=== PATIENT | female | born 1945 | race Caucasian/White ===

== ENCOUNTER 2020-05-20 18:06 | Inpatient (IN) ==
[2020-05-20] MEDS ORDERED: ALBUT/IPRATROP 3MG/0.5MG NEB 3 ML VIAL INH STA (18:16)
--- NOTE | 2020-05-20 18:22 | Emergency Department Note ---
History of Present Illness General Chief Complaint: Shortness of Breath/Dyspnea Stated Complaint: SOB, EDEMA, HTN Time Seen by Provider: 05/20/20 18:10 Source: patient Mode of arrival: ambulatory Limitations: no limitations History of Present Illness Provider Complaint: shortness of breath HPI Narrative: This is a 74-year-old female who presents to the ED with a chief complaint of shortness of breath for at least 2 weeks. She states that it has been going on longer but it significantly worsened over the past couple of weeks. She states that she is also noticed some worsening of her pedal edema. She states that it typically gets worse in the summer anyway. She was seen at the PCPs office today and was found to have oxygen saturations of 77% on room air. This improved to 92% on 2 L. She was sent here for further evaluation. She denies any cold or cough symptoms. She has not had any sick contacts. She has not had a fever. No chest pains. No additional symptoms. Her symptoms are worsened with exertion. Related Data Home oxygen amount: none Home Medications Home Medications Medication Instructions Recorded Confirmed Type Glucosamine Chondroitin 2 cap PO BID 09/20/19 05/20/20 History cholecalciferol (vitamin D3) 2,000 unit PO QAM 09/20/19 05/20/20 History [Vitamin D3] furosemide 20 mg PO QAM 09/20/19 05/20/20 History ibuprofen 600 mg PO DAILY PRN 09/20/19 05/20/20 History losartan 25 mg PO QAM 09/20/19 05/20/20 History omega 2-qey-pxf-fish oil [Fish Oil] 1 cap PO QAM 09/20/19 05/20/20 History Allergies Allergy/AdvReac Type Severity Reaction Status Date / Time No Known Allergies Allergy Verified 05/20/20 19:30 Past Med/Surg History Medical History Hepatitis 40 YRS AGO Hypertension Morbid obesity with BMI of 40.0-44.9, adult Surgical History History of cholecystectomy History of hysterectomy History of right cataract surgery History of tooth extraction Family History Mother Diabetes Daughter Diabetes Social History Smoking Status: Former smoker Second Hand Exposure: No; Hx Alcohol Use: No Hx Substance Use: No Preferred Language: Hungarian Communication Ability: Effective Recreation Officer Required: No Beliefs That Will Affect Care: None Current Living Situation: Spouse Feels Safe at Home: Yes Review of Systems A total of 10 systems reviewed and were otherwise negative Physical Exam Vital Signs: Vital Signs - 24 hr 05/20/20 18:15 05/20/20 18:22 05/20/20 18:23 Temperature 37.5 C Temperature Source Oral Pulse Rate 98 H 98 H Pulse Rate [Apical ] 98 H Respiratory Rate 24 24 24 Respiratory Effort / Characteristics Spontaneous Labore d Spontaneous Labore d Respiratory Depth Normal Normal Respiratory Patter n Regular Regular Blood Pressure 158/84 H Blood Pressure [Ri ght Arm] 158/84 H Blood Pressure Pebbles n 108 Blood Pressure Pebbles n [Right Arm] 108 Pulse Oximetry 78 L 97 97 Oxygen Delivery Me thod Room Air Nasal Cannula Nasal Cannula Oxygen Flow Rate 3 2 2 Sepsis Recent Feve r Within 48 Hours No Sepsis New/Unexpla ined Change in Men deena Status No Sepsis Action Take n by Nursing No Action Required 05/20/20 19:00 05/20/20 20:50 Temperature Temperature Source Pulse Rate Pulse Rate [Apical ] 91 H 100 H Respiratory Rate 20 Respiratory Effort / Characteristics Non-Labored Sponta neous Respiratory Depth Respiratory Patter n Blood Pressure Blood Pressure [Ri ght Arm] 133/81 Blood Pressure Pebbles n Blood Pressure Pebbles n [Right Arm] 98 Pulse Oximetry 97 93 Oxygen Delivery Me thod Nasal Cannula Nasal Cannula Oxygen Flow Rate 2 3 Sepsis Recent Feve r Within 48 Hours Sepsis New/Unexpla ined Change in Men deena Status Sepsis Action Take n by Nursing Physical Exam: CONSTITUTIONAL/VITAL SIGNS: Reviewed / noted above. GENERAL: Non-toxic in appearance. INTEGUMENTARY: Warm, dry, and [place]. HEAD: Normocephalic. EYES: without scleral icterus or trauma. ENT/OROPHARYNX: clear and moist. LYMPHADENOPATHY/NECK: Is supple without lymphadenopathy or meningismus. RESPIRATORY: Lungs reveal diminished breath sounds bilaterally with some crackle s in the bases. CARDIOVASCULAR: Regular rate and rhythm. GI/ABDOMEN: Soft and nontender. No organomegaly or pulsatile mass. No rebound or guarding. Normal bowel sounds. EXTREMITIES: Warm and well perfused. Positive pedal edema. BACK: No CVA tenderness. NEUROLOGICAL: Intact without focal deficits. PSYCHIATRIC: normal affect. MUSCULOSKELETAL: Normally developed with good muscle tone. TRIAGE NURSING DOCUMENTATION REVIEWED. Course Administered Medications Azithromycin 500 mg/ Dextrose 255 mls @ 127.5 mls/hr IV NOW STA Stop: 05/20/20 22:31 Last Admin: 05/20/20 20:51 Dose: 127.5 mls/hr Documented by: [id number] Discontinued Medications Albuterol (Duoneb) 3 ml INH NOW STA Stop: 05/20/20 18:17 Last Admin: 05/20/20 19:00 Dose: 3 ml Documented by: [id number] Ceftriaxone Sodium (Rocephin) 1,000 mg in 50 mls @ 100 mls/hr IV NOW STA Stop: 05/20/20 21:01 Last Infusion: 05/20/20 20:51 Dose: 0 mls/hr Documented by: [id number] Admin: 05/20/20 20:44 Dose: 100 mls/hr Documented by: [id number] Ioversol (Optiray 320 125ml) 119 ml IV ONCE ONE Stop: 05/20/20 19:57 Last Admin: 05/20/20 19:57 Dose: 119 ml Documented by: [id number] Medical Decision Making Differential Diagnosis The differential was considered includes acute myocardial infarction, acute coronary syndrome, myocarditis, pericarditis, pericardial effusions /tamponad, esophageal perforation, pulmonary embolism, pneumonia, pneumothorax, cardiomyopathy, congestive heart, anemia , COPD/asthma exacerbation. Medical Records Attestation: I reviewed the patient's medical records. Home Medications Current Medication List: was personally reviewed by me Laboratory Data Attestation: I reviewed the patient's lab results. Result diagrams: 05/20/20 18:22 05/20/20 18:22 Lab Results 05/20/20 05/20/20 05/20/20 Range/Units 18:22 18:22 18:22 WBC 7.19 (4.8-10.8) K/uL RBC 5.20 (4.2-5.4) M/uL Hgb 15.9 (12.0-16.0) g/dL Hct 50.2 H (37-47) % MCV 96.5 (80-100) fL MCH 30.6 (25-34) pg MCHC 31.7 L (32-36) g/dL RDW Std Deviation 52.8 H (36.4-46.3) fL RDW Coeff of Fidencio 15.0 H (11.5-14.5) % Plt Count 150 (130-400) K/uL MPV 10.8 H (7.4-10.4) fL Immature Gran % (Auto) 0.1 % Neut % (Auto) 45.9 % Lymph % (Auto) 39.5 % [place] % (Auto) 10.6 % Eos % (Auto) 3.5 % Baso % (Auto) 0.4 % Neut # (Auto) 3.30 (1.4-6.5) K/uL Lymph # (Auto) 2.84 (1.2-3.4) K/uL [place] # (Auto) 0.76 H (0.11-0.59) K/uL Eos # (Auto) 0.25 (0-0.5) K/uL Baso # (Auto) 0.03 (0-0.2) K/uL Immature Gran # (Auto) 0.01 (0.00-0.02) K/uL PT 11.2 (9.0-12.0) Seconds INR 1.1 (0.9-1.1) APTT 25.7 (21.0-31.0) Seconds PTT Ratio 0.9 Sodium 140 (136-145) mmol/L Potassium 4.2 (3.5-5.1) mmol/L Chloride 102 (98-107) mmol/L Carbon Dioxide 38 H (21-32) mmol/L Anion Gap 1.0 L (3-11) BUN 20 H (7-18) mg/dl Creatinine 1.02 (0.6-1.2) mg/dl Est Cr Clr Drug Dosing 52.4 ml/min Est GFR ( Amer) 63.2 Est GFR (Non-Af Amer) 54.5 BUN/Creatinine Ratio 19.1 (10-20) Glucose 98 (70-99) mg/dl Calcium 8.8 (8.5-10.1) mg/dl Total Bilirubin 0.4 (0.2-1) mg/dl AST 27 (15-37) U/L ALT 53 (12-78) U/L Alkaline Phosphatase 86 (45-117) U/L CK-MB (CK-2) 1.2 (0.5-3.6) ng/ml Troponin I < 0.015 (0-0.045) ng/ml NT-Pro-B Natriuret Pep 479 (0-900) pg/ml Total Protein 7.2 (6.4-8.2) gm/dl Albumin 2.9 L (3.4-5.0) gm/dl Globulin 4.3 H (2.5-4.0) gm/dl Albumin/Globulin Ratio 0.7 L (0.9-2) COVID-19 Eval Order 05/20/20 Range/Units Unknown WBC (4.8-10.8) K/uL RBC (4.2-5.4) M/uL Hgb (12.0-16.0) g/dL Hct (37-47) % MCV (80-100) fL MCH (25-34) pg MCHC (32-36) g/dL RDW Std Deviation (36.4-46.3) fL RDW Coeff of Fidencio (11.5-14.5) % Plt Count (130-400) K/uL MPV (7.4-10.4) fL Immature Gran % (Auto) % Neut % (Auto) % Lymph % (Auto) % [place] % (Auto) % Eos % (Auto) % Baso % (Auto) % Neut # (Auto) (1.4-6.5) K/uL Lymph # (Auto) (1.2-3.4) K/uL [place] # (Auto) (0.11-0.59) K/uL Eos # (Auto) (0-0.5) K/uL Baso # (Auto) (0-0.2) K/uL Immature Gran # (Auto) (0.00-0.02) K/uL PT (9.0-12.0) Seconds INR (0.9-1.1) APTT (21.0-31.0) Seconds PTT Ratio Sodium (136-145) mmol/L Potassium (3.5-5.1) mmol/L Chloride (98-107) mmol/L Carbon Dioxide (21-32) mmol/L Anion Gap (3-11) BUN (7-18) mg/dl Creatinine (0.6-1.2) mg/dl Est Cr Clr Drug Dosing ml/min Est GFR ( Amer) Est GFR (Non-Af Amer) BUN/Creatinine Ratio (10-20) Glucose (70-99) mg/dl Calcium (8.5-10.1) mg/dl Total Bilirubin (0.2-1) mg/dl AST (15-37) U/L ALT (12-78) U/L Alkaline Phosphatase (45-117) U/L CK-MB (CK-2) (0.5-3.6) ng/ml Troponin I (0-0.045) ng/ml NT-Pro-B Natriuret Pep (0-900) pg/ml Total Protein (6.4-8.2) gm/dl Albumin (3.4-5.0) gm/dl Globulin (2.5-4.0) gm/dl Albumin/Globulin Ratio (0.9-2) COVID-19 Eval Order Covid19 Done at [facility] Imaging Data Radiologist's Impression: XR chest 1V portable CLINICAL HISTORY: Dyspnea COMPARISON STUDY: No previous studies for comparison. FINDINGS: The heart is normal in size. There are low lung volumes. There is asymmetric interstitial thickening and perihilar distribution. There is no lobar consolidation. There is borderline mediastinal widening.[ IMPRESSION: 1. Low lung volumes 2. Borderline mediastinal widening 3. Bilateral interstitial thickening with a perihilar distribution. 4. No evidence of lobar consolidation CT scan of the chest for PE: IMPRESSION: 1. No CT evidence of acute pulmonary embolism 2. Multinodular thyroid gland 3. Bilateral groundglass pulmonary opacities with a mosaic distribution. In addition there is dependent lower lung zone cystic change/honeycombing. There is also mild paramediastinal fibrotic changes with minimal bronchiectasis 4. Clinical correlation with any prior history of interstitial lung disease or mediastinal radiation recommended 5. The groundglass opacities could reflect an atypical pneumonia, be secondary to interstitial lung disease, or represent air trapping.. Clinical and radiogra [facility] follow-up recommended. ECG Data Attestation: I personally reviewed and interpreted this ECG as follows: (Twelve- lead EKG: Per my interpretation reveals a normal sinus rhythm at a rate of 98 without ischemic changes. No PVCs. No ST elevation. Normal QTC.) MDM Narrative The patient presents with worsening dyspnea over the past couple of weeks as well as some pedal edema. Her oxygen saturations were 77% on room air. Her physical exam reveals diminished breath sounds bilaterally with some crackles in the bases. She is chronically on Lasix for her peripheral edema. An EKG shows a normal sinus rhythm at a rate of 98. Her vital signs are normal. A CT scan of the chest shows some groundglass opacities that could reflect an atypical pneumonia or interstitial lung disease. The patient's blood work reveals a normal white blood cell count. She is not anemic. Chemistry panel was unrema rkable. Because of the patient's hypoxia, patient will see the hospitalist for further inpatient evaluation and care. She was given IV antibiotics including Rocephin and Zithromax. She was also given a DuoNeb treatment here. Impression & Plan Hypoxia Critical Care Time Critical Care Time: Yes Total Critical Care Time: 30 Discharge Plan Visit Data Chief Complaint: Shortness of Breath/Dyspnea Stated Complaint: SOB, EDEMA, HTN ED Provider: Wilfrido Barber Discharge Problem: Hypoxia Patient Disposition: Being Evaluated by Hospitalist Forms Stand Alone Forms: [facility] Prescriptions Prescriptions: No Action losartan 25 mg Tablet 25 mg PO QAM RF: 0 ibuprofen 200 mg Tablet 600 mg PO DAILY PRN (Reason: Pain) RF: 0 furosemide 20 mg Tablet 20 mg PO QAM RF: 0 cholecalciferol (vitamin D3) [Vitamin D3] 2,000 unit Tablet 2,000 unit PO QAM RF: 0 omega 4-cqt-wty-fish oil [Fish Oil] 1,000 mg (120 mg-180 mg) Capsule 1 cap PO QAM RF: 0 Glucosamine Chondroitin 550-30-1 mg Capsule 2 cap PO BID RF: 0 Referrals Referrals: Naida Cardenas PA-C [Primary Care Provider] -
[2020-05-20 18:41] LABS: Basophils # (auto) 0.03 K/uL (0-0.2); Basophils % (auto) 0.4 %; Eosinophils # (auto) 0.25 K/uL (0-0.5); Eosinophils % (auto) 3.5 %; Hematocrit (blood only) 50.2 % (37-47); Hemoglobin 15.9 g/dL (12.0-16.0); Immature Granulocytes # (auto) 0.01 K/uL (0.00-0.02); Immature Granulocytes % (auto) 0.1 %; Lymphocytes # (auto) 2.84 K/uL (1.2-3.4); Lymphocytes % (auto) 39.5 %; Mean Corpuscular Hemoglobin 30.6 pg (25-34); Mean Corpuscular Hgb Conc 31.7 g/dL (32-36); Mean Corpuscular Volume 96.5 fL (80-100); Mean Platelet Volume 10.8 fL (7.4-10.4); Monocytes # (auto) 0.76 K/uL (0.11-0.59); Monocytes % (auto) 10.6 %; Neutrophils % (auto) 45.9 %; Platelet Count 150 K/uL (130-400); RDW Standard Deviation 52.8 fL (36.4-46.3); White Blood Count 7.19 K/uL (4.8-10.8)
[2020-05-20 18:57] LABS: INR 1.1 (0.9-1.1); Partial Thromboplastin Ratio 0.9; Partial Thromboplastin Time 25.7 Seconds (21.0-31.0); Prothrombin Time 11.2 Seconds (9.0-12.0)
--- NOTE | 2020-05-20 19:04 | XRay Report ---
XR chest 1V portable CLINICAL HISTORY: Dyspnea COMPARISON STUDY: No previous studies for comparison. FINDINGS: The heart is normal in size. There are low lung volumes. There is asymmetric interstitial t hickening and perihilar distribution. There is no lobar consolidation. There is borderline mediastina l widening.[ IMPRESSION: 1. Low lung volumes 2. Borderline mediastinal widening 3. Bilateral interstitial thickening with a perihilar distribution. 4. No evidence of lobar consolidation ACT 112: Negative or not required by law. Electronically signed by: Kenny Garcia M.D. 05/20/2020 7:03 PM
[2020-05-20 19:09] LABS: Alanine Aminotransferase 53 U/L (12-78); Albumin Level 2.9 gm/dl (3.4-5.0); Aspartate Aminotransferase 27 U/L (15-37); BUN Creatinine Ratio 19.1 (10-20); Blood Urea Nitrogen 20 mg/dl (7-18); Calcium 8.8 mg/dl (8.5-10.1); Carbon Dioxide 38 mmol/L (21-32); Chloride 102 mmol/L (98-107); Creatinine Clr Calc Pharmacy 52.4 ml/min; Est GFR (African American) 63.2; Est GFR (Non-African American) 54.5; Glucose 98 mg/dl (70-99); Potassium 4.2 mmol/L (3.5-5.1); Sodium 140 mmol/L (136-145)
[2020-05-20 19:14] LABS: Albumin Globulin Ratio 0.7 (0.9-2); Alkaline Phosphatase 86 U/L (45-117); Bilirubin,Total 0.4 mg/dl (0.2-1); Creatine Kinase MB 1.2 ng/ml (0.5-3.6); Globulin 4.3 gm/dl (2.5-4.0); NT Pro B Type Natriuretic Pept 479 pg/ml (0-900); Total Protein 7.2 gm/dl (6.4-8.2); Troponin I < 0.015 ng/ml (0-0.045)
[2020-05-20] MEDS ORDERED: OPTIRAY 320 125ml IV ONE (19:56)
--- NOTE | 2020-05-20 20:10 | CT Scan Report ---
CT ANGIOGRAM OF THE CHEST CLINICAL HISTORY: Shortness of breath. Possible pulmonary embolism COMPARISON STUDY: Chest x-ray performed the same day TECHNIQUE: Following the IV administration of 119 mL of Optiray-320, CT angiogram of the thorax was p erformed from the thoracic inlet to the lung bases utilizing the pulmonary embolus protocol. Images a re reviewed in the axial, sagittal, and coronal planes. IV contrast was administered without complica tion. MIP imaging was performed. A dose lowering technique was utilized adhering to the principles o f ALARA. CT DOSE: 815.64 mGy.cm FINDINGS: There is elevation/eventration of right hemidiaphragm. There is a multinodular thyroid gland. The largest nodule is a 15 mm right lobe nodule. There is a precarinal lymph node the upper limits of normal in size. There is no pathologic hilar or axillary lymphadenopathy. There was no evidence of thoracic aortic dilatation. There were no pulmonary artery filling defects to indicate acute pulmonary embolism. No pleural effusions are visualized. There are bilateral groundglass pulmonary opacities with a mosaic distribution. There are lower lobe areas of cystic change/honeycombing. There is mild paramediastinal fibrotic change with minimal bronc hiectasis. Clinical correlation in relation to a prior mediastinal radiotherapy recommended. IMPRESSION: 1. No CT evidence of acute pulmonary embolism 2. Multinodular thyroid gland 3. Bilateral groundglass pulmonary opacities with a mosaic distribution. In addition there is depende nt lower lung zone cystic change/honeycombing. There is also mild paramediastinal fibrotic changes wi th minimal bronchiectasis 4. Clinical correlation with any prior history of interstitial lung disease or mediastinal radiation recommended 5. The groundglass opacities could reflect an atypical pneumonia, be secondary to interstitial lung d isease, or represent air trapping.. Clinical and radiographic follow-up recommended. ACT 112: Negative or not required by law. Electronically signed by: Kenny Garcia M.D. 05/20/2020 8:08 PM
[2020-05-20] MEDS ORDERED: cefTRIAXone SODIUM 1,000 MG/50 ML BAG IV STA (20:32)
[2020-05-20] MEDS ORDERED: AZITHROMYCIN 500 MG in DEXTROSE 5% 250 ML IV STA (20:32)
--- NOTE | 2020-05-21 00:02 | History and Physical Report ---
DATE OF ADMISSION: 05/20/2020 CHIEF COMPLAINT: Shortness of breath and hypoxia. HISTORY OF PRESENT ILLNESS: This is a 74-year-old female with past medical history significant for hypertension, chronic lower extremity edema, who lives with her , comes because of shortness of breath. The patient states she thinks she might have this shortness of breath going for last 2 months, but last 2 weeks has been progressively worsened, any exertion making her short of breath. She went to PCP's office where she was found to have oxygen saturation in 70s in room air and she was sent here. When she came in, she was 73%, but with 2-3 liters she is going to mid 90s and she is talking in full sentences and seems comfortable and hemodynamically stable. Denies any chest pain. Denies any fever, chills, no cough, no nausea, no vomiting. No blurred visions. No earache, no runny nose, no sore throat, no difficulty swallowing. Appetite is okay. No recent weight gain or weight loss. No headache. No abdominal pain. Normal bowel and bladder movements. No black stools or blood in the stools. No hematuria or burning micturitions. She says she has this edema in her legs, she thinks it has been going on for last 1 or 2 years, sometimes less, sometimes more. As per her home medications, she takes Lasix as needed. She says no one in the family exposed to COVID. ALLERGIES: No known drug allergies. PAST MEDICAL HISTORY: As mentioned above. PAST SURGICAL HISTORY: Injection of cervical spine, cholecystectomy, vaginal hysterectomy. MEDICATIONS: The patient is on losartan 25 mg p.o. daily, Lasix 20 mg p.o. daily p.r.n., fish oil 1 capsule daily, glucosamine chondroitin 1200 mg 1 tablet daily, Coenzyme Q10 200 mg p.o. daily. FAMILY HISTORY: Significant for mother has hypertension, colon polyps, diabetes. Sister has diabetes, hypertension, daughter has diabetes. Uncle has cancer. SOCIAL HISTORY: and lives with her . Former smoker, quit in 1992. Alcohol rarely. No drug use. REVIEW OF SYMPTOMS: As per HPI. Rest of review of symptoms negative. PHYSICAL EXAMINATION: GENERAL: The patient is of moderate build, not in acute distress. VITAL SIGNS: Temperature 37.5, pulse 100, respiratory rate 20, blood pressure 133/81, oxygen 93% on 3 liters. HEENT: No pallor, no icterus. Pupils equal, round, reactive to light. NECK: No JVD, no neck masses, no carotid bruits. CARDIOVASCULAR: S1, S2 heard, regular rate and rhythm, no murmur, no gallop. RESPIRATORY SYSTEM: Normal AP diameter. No accessory muscle use. Mild bibasilar coarse crackles present. No wheezing. ABDOMEN: Soft, bowel sounds present, nontender. No distention. CENTRAL NERVOUS SYSTEM: Cranial nerves II-XII grossly intact. Nonfocal. EXTREMITIES: Chronic bilateral lower extremity edema present, no erythema seen. LABORATORY DATA: WBC 7.1, hemoglobin 15.9, hematocrit 50.2, platelets 150. PT 11.2, INR 1.1, APTT 25.7. Sodium 140, potassium 4.2, chloride 102, bicarbonate 38, BUN 20, creatinine 1.02, serum glucose 98, calcium 8.8, total bilirubin 0.4, AST 24, ALT 53, alkaline phosphatase 86. Troponin I less than 0.015. Chest x-ray, low lung volumes, borderline mediastinal widening, bilateral interstitial thickening with a perihilar distribution. No evidence of lobar consolidation. CT of the chest, no CT evidence for acute pulmonary embolism, multinodular thyroid gland, bilateral ground-glass pulmonary opacities with mosaic distribution. In addition, there is dependent lower lung zone cystic change honeycombing. There is also mild paramediastinal fibrotic changes with minimal bronchiectasis. Clinical correlation with any prior history of interstitial lung disease or mediastinal radiation recommended. The ground-glass opacities could reflect an atypical pneumonia, could be secondary to interstitial lung disease or present air trapping. EKG: Normal sinus rhythm, rate of 98, no significant change was found. ASSESSMENT AND PLAN: This is a 74-year-old female who presents with shortness of breath and hypoxia. 1. Shortness of breath, hypoxia: Saturating in 70s in room air, with 3 liters oxygen saturations improved. CTA of the chest, no PE, but shows some ground-glass opacities, possible areas of cystic change honeycombing, remote history of smoking. Differential diagnoses could be interstitial lung disease, possible atypical pneumonitis. Risk for COVID is very low, but because of ground-glass opacities in the lung and hypoxia,we will rule out COVID. We will empirically start on IV Rocephin and doxycycline. Nebs p.r.n. Monitor in the med/tele. Consult pulmonary in the a.m. for further recommendations. 2. Hypertension: Continue losartan. 3. Lower extremity edema: The patient takes Lasix, seems as needed. We will get an echocardiogram. 4. Deep venous thrombosis prophylaxis: Lovenox. DISPOSITION: Closely monitor on med tele. Level 1 full code. Expect discharge home and follow with family doctor. FARRUKH
[2020-05-21] MEDS ORDERED: POLYETHYLENE (MIRALAX) 17 GM PACK PO PRN (00:44)
[2020-05-21] MEDS ORDERED: ONDANSETRON INJ 2 MG/ML 2 ML VIAL IV PRN (00:44)
[2020-05-21] MEDS ORDERED: NITROGLYCERIN SL 0.4 MG/TAB TAB SL PRN (00:44)
[2020-05-21] MEDS ORDERED: LEVALBUTEROL HCL 1.25 MG/3 ML NEB NEB PRN (00:44)
[2020-05-21] MEDS ORDERED: ACETAMINOPHEN 325 MG TAB PO PRN (00:44)
[2020-05-21 01:21] LABS: Appearance Urine Clear (Clear); Bacteria Urine Automated Negative (Negative); Bilirubin Urine Negative (Negative); Blood Urine Trace (Negative); Cast Urine Automated 0 /lpf (0-5); Color Urine Yellow; Epithelial Cell Urine Auto >30 /lpf (0-5); Glucose Urine UA Negative (Negative); Ketones Urine Negative (Negative); Leukocyte Esterase Urine Negative (Negative); Nitrite Urine Negative (Negative); Protein Urine Negative (Negative); RBC Urine Automated 0-4 /hpf (0-4); Specific Gravity Urine > 1.045 (1.000-1.030); Urobilinogen Urine Negative (Negative)
[2020-05-21 05:47] LABS: Basophils # (auto) 0.03 K/uL (0-0.2); Basophils % (auto) 0.4 %; Eosinophils # (auto) 0.31 K/uL (0-0.5); Eosinophils % (auto) 4.1 %; Hematocrit (blood only) 49.2 % (37-47); Immature Granulocytes # (auto) 0.01 K/uL (0.00-0.02); Immature Granulocytes % (auto) 0.1 %; Lymphocytes # (auto) 2.58 K/uL (1.2-3.4); Lymphocytes % (auto) 34.1 %; Mean Corpuscular Hemoglobin 29.8 pg (25-34); Mean Corpuscular Hgb Conc 30.5 g/dL (32-36); Mean Corpuscular Volume 97.6 fL (80-100); Mean Platelet Volume 10.7 fL (7.4-10.4); Monocytes # (auto) 0.82 K/uL (0.11-0.59); Monocytes % (auto) 10.8 %; Neutrophils # (auto) 3.81 K/uL (1.4-6.5); Neutrophils % (auto) 50.5 %; Platelet Count 129 K/uL (130-400); RDW Coefficient of Variation 15.1 % (11.5-14.5); RDW Standard Deviation 54.1 fL (36.4-46.3); Red Blood Count 5.04 M/uL (4.2-5.4); White Blood Count 7.56 K/uL (4.8-10.8)
[2020-05-21 06:14] LABS: BUN Creatinine Ratio 19.6 (10-20); Calcium 8.3 mg/dl (8.5-10.1); Creatinine Clr Calc Pharmacy 67.9 ml/min; Est GFR (African American) 79.9; Magnesium 2.2 mg/dl (1.8-2.4); Potassium 4.2 mmol/L (3.5-5.1)
[2020-05-21] MEDS ORDERED: NON-FORMULARY MEDICATION (Glucos Sul 2kcl-Msm-Chond-C-Mn [Glucosamine Chondroitin] 2 CAP) PO SCH (09:00)
[2020-05-21 09:31] LABS: Allen Test Pos (Pos); Base Excess ABG 6.5 mEq/L (-9-1.8); HCO3 ABG 36 mmol/L (19-24); PCO2 ABG 78 mmHg (35-46); PO2 ABG 77 mmHg (80-95); pH ABG 7.29 (7.35-7.45)
[2020-05-21] MEDS: LOSARTAN POTASSIUM 25 MG TAB PO SCH (09:39)
[2020-05-21] MEDS: CHOLECALCIFEROL 1,000 UNITS 25 MCG TAB PO SCH (09:39)
[2020-05-21] MEDS: ENOXAPARIN INJ 40 MG/0.4 ML SYR SQ SCH (09:40)
[2020-05-21] MEDS: FUROSEMIDE 20 MG TAB PO SCH (09:40)
[2020-05-21] MEDS: DOXYCYCLINE HYCLATE 100 MG in DEXTROSE 5% 100 ML IV SCH ×2 (09:42→20:37)
--- NOTE | 2020-05-21 14:54 | Pulmonary Consultation ---
Date of Consultation May 21, 2020 Assessment & Plan (1) Hypoxia: CT chest without contrast: Bilateral lower lobe honeycombing appreciated. There is traction bronchiectasis. There is mosaicism appreciated diffusely. There is bronchiectasis in the right upper lobe as well with mild interstitial thickening. No mediastinal lymphadenopathy. Elevated right hemidiaphragm. Overall volume loss on the right side. No previous imaging to compare. ABG 05/21/2020: 7.29/78/77 on 3 L nasal cannula at rest. --Acute hypercapnic hypoxic respiratory failure Etiology is likely from her underlying chronic lung disease which has been undiagnosed so far Does have elevated hemidiaphragm but I think this is secondary to the chronic volume loss of the lung from fibrosis Etiology of pulmonary fibrosis is unclear right now, patient has no personal or family history of any interstitial lung disease or autoimmune disease. No exposure to birds or chemicals. Hypercapnia from could be from underlying ILD leading to space ventilation along with ANDREW/OHS BiPAP nightly and PRN shortness of breath. I ordered autoimmune work-up, will follow it up. I do not think patient has any acute pulmonary infection. COVID-19 done 05/20/2020 -ve Patient will benefit from outpatient pulmonary function tests to look as total lung capacity as well as FEV1 and FVC along with DLCO. Patient will need pulmonary rehab. --Probable ANDREW/OHS PCO2 78, HCO3 38 at the time of presentation Outpatient polysomnography Continue with BiPAP as needed while in the hospital --Diastolic CHF Echo 05/21/2020 showed ejection fraction greater than 70%, grade 1 diastolic dysfunction Right ventricular systolic function normal Plan: Currently continue with oxygen saturation to keep oxygen saturation between 90- 92% Please note the above document was generated using voice recognition software. It may contain grammatical, syntax or spelling errors. (2) ILD (interstitial lung disease): History of Present Illness Attending Physician: Manuel Umana MD History of Present Illness 74-year-old female with past medical history of hypertension, chronic lower extremity edema, ex-smoker was admitted to the hospital because of progressively worsening shortness of breath. At the time of examination patient stated that she is able to walk half a block to a block on a straight path before she has to catch her breath. Walking an incline path is the time when she really get short of breath. The shortness of breath is not associated with wheezing. She denies any chest pain, palpitation, dizziness, headache, blurry vision at that time. As per the patient she has been having this issues with shortness of breath for a long time 3 to 4 months. Patient denies any headache, no abdominal pain, no dysuria, no diarrhea. No weight loss, no night sweats. No recent travel history. Patient denies any personal history of any autoimmune disease. Denies any Ray naud's phenomenon. No family history of any autoimmune disease. No family history of any lung disease. Social history: [id number] smoking history, quit at the age of 38, social alcohol, denies any illicit drug use. 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 No exposure to any chemicals or fumes. Pets: 3 dogs 2 cats. No birds or poultry nearby. Does not stay on a farm. Allergies Allergy/AdvReac Type Severity Reaction Status Date / Time No Known Allergies Allergy Verified 05/20/20 19:30 Home Medications Home Medications Medication Instructions Recorded Confirmed Type Glucosamine Chondroitin 2 cap PO BID 09/20/19 05/20/20 History cholecalciferol (vitamin D3) 2,000 unit PO QAM 09/20/19 05/20/20 History [Vitamin D3] furosemide 20 mg PO QAM 09/20/19 05/20/20 History ibuprofen 600 mg PO DAILY PRN 09/20/19 05/20/20 History losartan 25 mg PO QAM 09/20/19 05/20/20 History omega 5-urz-asc-fish oil [Fish Oil] 1 cap PO QAM 09/20/19 05/20/20 History Patient History Medical History Hepatitis 40 YRS AGO Hypertension Morbid obesity with BMI of 40.0-44.9, adult Surgical History History of cholecystectomy History of hysterectomy History of right cataract surgery History of tooth extraction Family History Mother Diabetes Daughter Diabetes Social History Smoking Status: Former smoker Smoking End Date: Former 1.5 PPD smoker, [employer], quit 30 years ago; Second Hand Exposure: No; Do You Dip or Chew Tobacco: No; Tobacco Cessation Education Requested by Patient: No Hx Alcohol Use: No Hx Substance Use: No Preferred Language: Pashto Communication Ability: Effective Sign Erector Required: No Beliefs That Will Affect Care: None Current Living Situation: Spouse Current Living Situation Comment: Lives at home w/ Other Information That Helps Us Care for You: No Feels Safe at Home: Yes Safety Concerns: Feels Safe At This Time Review of Systems Review of Systems: All systems reviewed & are unremarkable except as noted in HPI & below Physical Exam Physical Exam: Constitutional: No acute distress HEENT: EOMI, PERRLA Respiratory system: Decreased air entry bilaterally, no wheeze, no rhonchi, positive Velcro crackles appreciated bilaterally CVS: S1-S2 positive, no murmurs or gallops, accentuated P2 Abdomen: Soft, nontender, nondistended, positive bowel sounds x4 Extremities: +2 pulses bilaterally radialis/ dorsalis pedis, no cyanosis, +1 pitting edema bilateral lower extremity Neuro: Awake alert oriented x3 Psych: Normal mood and affect G/U: No Rutledge At the time of examination patient was saturating 99% on 2.5 L nasal cannula at rest with heart rate of 80. Skin: no rashes, warm and dry Lymphatic: no cervical or axillary lymphadenopathy Results & Data Results & Data ([facility]) Vital Signs (Past 12 Hours) Vital Signs Temp Pulse Pulse Pulse Resp BP BP 05/21/20 11:32 36.8 C 90 20 133/84 05/21/20 07:31 90 05/21/20 07:26 36.8 C 91 H 18 124/72 05/21/20 04:00 37.1 C 90 22 135/82 05/21/20 03:05 36.7 C 93 H 24 156/87 H Pulse Ox 05/21/20 11:32 90 05/21/20 07:31 05/21/20 07:26 93 05/21/20 04:00 90 05/21/20 03:05 94 05/21/20 05:30 05/21/20 05:30 PG Care Time/CCT Total # of Minutes Spent Total Time Spent with Patient: Total time spent is greater than 50% in coordination of care (as documented) at patient's floor/unit and/or counseling patient: Coding Level of Care Code 30933 Initial Inpt Care Lvl 3 Diagnoses Hypoxia R09.02 ILD (interstitial lung disease) J84.9
--- NOTE | 2020-05-21 16:48 | Hospitalist Progress Note ---
Date of Service May 21, 2020 Assessment & Plan (1) Hypoxia: Patient is a 74-year-old male with history of morbid obesity, hypertension, chronic lower extremity edema and other medical problems presents with history of shortness of breath and hypoxia. Acute hypercapnic, hypoxic respiratory failure Could have underlying chronic lung disease DD: Interstitial lung disease, ANDREW/obesity hypoventilation syndrome --CTA: No CT evidence of acute pulmonary embolism. Multinodular thyroid gland. Bilateral groundglass pulmonary opacities with a mosaic distribution. In addition there is dependent lower lung zone cystic change/honeycombing. There is also mild paramediastinal fibrotic changes with minimal bronchiectasis. Clinical correlation with any prior history of interstitial lung disease or mediastinal radiation recommended. The groundglass opacities could reflect an atypical pneumonia, be secondary to interstitial lung disease, or represent air trapping.. Clinical and radiographic follow-up recommended. --ECHO: Left ventricle EF: > 70%, grade 1 diastolic dysfunction. No significant valvular heart disease. --Negative COVID PCR --Immunological work pending --Continue BiPAP HS and PRN Continue supplemental oxygen Empirically on antibiotics Appreciate Pulmonology Input Will need sleep study as outpatient Hypertension: Continue losartan Abnormal UA Urine/Blood Cx:pending Continue Rocephin Chronic Lower extremity edema: ECHO as above Continue Lasix Monitor Morbid Obesity: BMI: 45 DVT Px: Lovenox SQ Code Status Full Code DISPOSITION: Expect to discharge home Admission and Anticipated Discharge Date Admission Date: May 20, 2020 Subjective Patient is seen and examined at bedside Complains of mild chest discomfort Dyspnea improved with oxygen supplementation Denies dizziness, nausea, abdominal pain Offers no other complaints Saturating low 90s on 3 L of supplemental oxygen Review of Systems Review of Systems: All systems reviewed & are unremarkable except as noted in HPI & below Physical Exam Physical Exam: Physical Exam: Vitals signs as noted above General Appearance:Moderately built and nourished, no apparent distress Head: normocephalic, Atraumatic Eyes: normal inspection, EOMI Neck: supple, Trachea midline Respiratory/Chest: Decreased breath sounds, Basal crackles, No accessory muscle use Cardiovascular: S1, S2, No murmur Abdomen/GI:Soft, Non tender, Bowel sounds present Extremities/Musculoskelatal:normal inspection, 1+ B/L LE edema Neurologic/Psych:AAOX3, grossly no focal neurological deficits Skin: normal color, warm Results & Data Results & Data ([facility]) Vital Signs (Past 12 Hours) Vital Signs Temp Pulse Pulse Resp BP Pulse Ox 05/21/20 15:43 37.3 C 92 H 18 147/81 H 92 05/21/20 15:00 91 H 05/21/20 11:32 36.8 C 90 20 133/84 90 05/21/20 07:31 90 05/21/20 07:26 36.8 C 91 H 18 124/72 93 Laboratory Results Short CBC 05/20/20 05/21/20 Range/Units 18:22 05:30 WBC 7.19 7.56 (4.8-10.8) K/uL Hgb 15.9 15.0 (12.0-16.0) g/dL Hct 50.2 H 49.2 H (37-47) % Plt Count 150 129 L (130-400) K/uL BMP 05/20/20 05/21/20 18:22 05:30 Sodium 140 142 Potassium 4.2 4.2 Chloride 102 104 Carbon Dioxide 38 H 36 H BUN 20 H 17 Creatinine 1.02 0.84 Glucose 98 98 Calcium 8.8 8.3 L Cardiac Enzymes 05/20/20 05/21/20 Range/Units 18:22 14:45 Total Creatine Kinase 72 (26-192) U/L CK-MB (CK-2) 1.2 (0.5-3.6) ng/ml Troponin I < 0.015 (0-0.045) ng/ml Liver Function 05/20/20 Range/Units 18:22 Total Bilirubin 0.4 (0.2-1) mg/dl AST 27 (15-37) U/L ALT 53 (12-78) U/L Alkaline Phosphatase 86 (45-117) U/L Albumin 2.9 L (3.4-5.0) gm/dl Urine 05/21/20 Range/Units 01:06 Urine Color Yellow Urine Appearance Clear (Clear) Urine pH 5.0 (4.5-7.5) Ur Specific [place] > 1.045 H (1.000-1.030) Urine Protein Negative (Negative) Urine Glucose (UA) Negative (Negative)
[2020-05-21] MEDS ORDERED: cefTRIAXone SODIUM 2,000 MG in DEXTROSE 5% 50 ML IV SCH (18:00)
[2020-05-22 06:59] LABS: Hematocrit (blood only) 47.4 % (37-47); Hemoglobin 14.8 g/dL (12.0-16.0); Mean Corpuscular Hemoglobin 30.4 pg (25-34); Mean Corpuscular Hgb Conc 31.2 g/dL (32-36); Mean Corpuscular Volume 97.3 fL (80-100); Mean Platelet Volume 11.3 fL (7.4-10.4); Platelet Count 132 K/uL (130-400); RDW Coefficient of Variation 14.5 % (11.5-14.5); RDW Standard Deviation 51.5 fL (36.4-46.3); Red Blood Count 4.87 M/uL (4.2-5.4); White Blood Count 7.02 K/uL (4.8-10.8)
[2020-05-22 07:31] LABS: BUN Creatinine Ratio 15.1 (10-20); Calcium 8.4 mg/dl (8.5-10.1); Creatinine Clr Calc Pharmacy 63.7 ml/min; Est GFR (African American) 74.5; Est GFR (Non-African American) 64.3; Magnesium 2.2 mg/dl (1.8-2.4)
[2020-05-22] MEDS: FUROSEMIDE 20 MG TAB PO SCH (07:48)
[2020-05-22] MEDS: CHOLECALCIFEROL 1,000 UNITS 25 MCG TAB PO SCH (07:48)
[2020-05-22] MEDS: LOSARTAN POTASSIUM 25 MG TAB PO SCH (07:48)
[2020-05-22] MEDS: ENOXAPARIN INJ 40 MG/0.4 ML SYR SQ SCH (07:49)
[2020-05-22] MEDS: DOXYCYCLINE HYCLATE 100 MG in DEXTROSE 5% 100 ML IV SCH (07:49)
--- NOTE | 2020-05-22 11:06 | Pulmonology Progress Note ---
Date of Service May 22, 2020 Assessment & Plan (1) Hypoxia: CT chest without contrast: Bilateral lower lobe honeycombing appreciated. There is traction bronchiectasis. There is mosaicism appreciated diffusely. There is bronchiectasis in the right upper lobe as well with mild interstitial thickening. No mediastinal lymphadenopathy. Elevated right hemidiaphragm. Overall volume loss on the right side. No previous imaging to compare. ABG 05/21/2020: 7.29/78/77 on 3 L nasal cannula at rest. --Acute hypercapnic hypoxic respiratory failure Etiology is likely from her underlying chronic lung disease which has been undiagnosed so far Does have elevated hemidiaphragm but I think this is secondary to the chronic volume loss of the lung from fibrosis Etiology of pulmonary fibrosis is unclear right now, patient has no personal or family history of any interstitial lung disease or autoimmune disease. No exposure to birds or chemicals. Hypercapnia from could be from underlying ILD leading to space ventilation along with ANDREW/OHS BiPAP nightly and PRN shortness of breath. I ordered autoimmune work-up, will follow it up. CCP is negative I do not think patient has any acute pulmonary infection. COVID-19 done 05/20/2020 -ve Patient will benefit from outpatient pulmonary function tests to look as total lung capacity as well as FEV1 and FVC along with DLCO. Patient will need pulmonary rehab. --Probable ANDREW/OHS PCO2 78, HCO3 38 at the time of presentation Outpatient polysomnography Continue with BiPAP as needed while in the hospital --Diastolic CHF Echo 05/21/2020 showed ejection fraction greater than 70%, grade 1 diastolic dysfunction Right ventricular systolic function normal Plan: She will need home O2 at least 2 L on a continuous basis. Recommend follow-up with the ug designer as an outpatient to have pulmonary function test done as well as outpatient polysomnography. No further recommendations from pulmonary perspective. Pulmonary will sign off. Please recall if needed. Please note the above document was generated using voice recognition software. It may contain grammatical, syntax or spelling errors. (2) ILD (interstitial lung disease): Admission and Anticipated Discharge Date Admission Date: May 20, 2020 Subjective Patient seen and examined at bedside. No acute distress, no adverse events overnight. Shortness of breath is at baseline. She does feel better compared to the one when she was at home. Denies any chest pain, no headache, no dizziness. Good appetite. She did use BiPAP overnight for couple of hours she liked the machine but was not comfortable with the mask. Advised patient to use it as much as possible. Review of Systems Review of Systems: All systems reviewed & are unremarkable except as noted in HPI & below Physical Exam Physical Exam: Constitutional: No acute distress HEENT: EOMI, PERRLA Respiratory system: Decreased air entry bilaterally, no wheeze, no rhonchi, positive Velcro crackles appreciated bilaterally CVS: S1-S2 positive, no murmurs or gallops, accentuated P2 Abdomen: Soft, nontender, nondistended, positive bowel sounds x4 Extremities: +2 pulses bilaterally radialis/ dorsalis pedis, no cyanosis, +1 pitting edema bilateral lower extremity Neuro: Awake alert oriented x3 Psych: Normal mood and affect G/U: No [place] At the time of examination patient was saturating 93% on 2 L nasal cannula at rest with heart rate of 87. Skin: no rashes, warm and dry Lymphatic: no cervical or axillary lymphadenopathy Results & Data Results & [facility] ([facility]) Vital Signs (Past 12 Hours) Vital Signs Temp Pulse Pulse Resp BP BP Pulse Ox 05/22/20 07:05 36.7 C 89 16 121/82 90 05/22/20 02:56 37.0 C 95 H 18 147/62 H 91 05/21/20 23:47 36.9 C 88 18 134/83 91 05/22/20 06:19 05/22/20 06:19 PG Care Time/CCT Total # of Minutes Spent Total Time Spent with Patient: Total time spent is greater than 50% in coordination of care (as documented) at patient's floor/unit and/or counseling patient: Coding Level of Care Code 29799 Subseq Hosp Care Lvl 3 Diagnoses Hypoxia R09.02 ILD (interstitial lung disease) J84.9
--- NOTE | 2020-05-22 12:46 | Hospitalist Progress Note ---
Date of Service May 22, 2020 Assessment & Plan (1) Hypoxia: Patient is a 74-year-old male with history of morbid obesity, hypertension, chronic lower extremity edema and other medical problems presents with history of shortness of breath and hypoxia. Acute hypercapnic, hypoxic respiratory failure Could have underlying chronic lung disease DD: Interstitial lung disease, ANDREW/obesity hypoventilation syndrome --CTA: No CT evidence of acute pulmonary embolism. Multinodular thyroid gland. Bilateral groundglass pulmonary opacities with a mosaic distribution. In addition there is dependent lower lung zone cystic change/honeycombing. There is also mild paramediastinal fibrotic changes with minimal bronchiectasis. Clinical correlation with any prior history of interstitial lung disease or mediastinal radiation recommended. The groundglass opacities could reflect an atypical pneumonia, be secondary to interstitial lung disease, or represent air trapping.. Clinical and radiographic follow-up recommended. --ECHO: Left ventricle EF: > 70%, grade 1 diastolic dysfunction. No significant valvular heart disease. --Negative COVID PCR --Immunological work pending --Continue BiPAP HS and PRN Continue supplemental oxygen Empirically on antibiotics--SaeidepMathew heath Appreciate Pulmonology Input 2 step: Qualifies for home oxygen: Requires 2 liters at rest and 3 liters with activity Will need sleep study and PFTs as outpatient Needs follow up with Pulmonology upon discharge Hypertension: Continue losartan Abnormal UA Urine culture:pending Blood Cx: No growth to date Received Rocephin Denies dysuria Chronic Lower extremity edema: ECHO as above Continue Lasix Monitor Morbid Obesity: BMI: 45 DVT Px: Lovenox SQ Code Status Full Code DISPOSITION: Expect to discharge home today Admission and Anticipated Discharge Date Admission Date: May 20, 2020 Subjective Patient is seen and examined at bedside No significant SOB Feels better today Eager to get discharged Had 2 step today: Requires 2 L with rest and 3 L with activity Denies chest pain, dizziness, nausea, abdominal pain Review of Systems Review of Systems: All systems reviewed & are unremarkable except as noted in HPI & below Physical Exam Physical Exam: Physical Exam: Vitals signs as noted above General Appearance:Moderately built and nourished, no apparent distress Head: normocephalic, Atraumatic Eyes: normal inspection, EOMI Neck: supple, Trachea midline Respiratory/Chest: Decreased breath sounds, B/L crackles, No accessory muscle use Cardiovascular: S1, S2, No murmur Abdomen/GI:Soft, Non tender, Bowel sounds present Extremities/Musculoskelatal:normal inspection, 1+ B/L LE edema Neurologic/Psych:AAOX3, grossly no focal neurological deficits Skin: normal color, warm Results & Data Results & Data ([facility]) Vital Signs (Past 12 Hours) Vital Signs Temp Pulse Pulse Pulse Pulse Pulse Pulse 05/22/20 11:47 84 94 H 98 H 102 H 93 H 05/22/20 11:06 37.2 C 92 H 05/22/20 07:05 36.7 C 89 05/22/20 02:56 37.0 C Pulse Resp Resp Resp Resp Resp Resp 05/22/20 11:47 18 20 20 20 18 05/22/20 11:06 16 05/22/20 07:05 16 05/22/20 02:56 95 H 18 BP BP Pulse Ox Pulse Ox Pulse Ox Pulse Ox Pulse Ox 05/22/20 11:47 92 93 82 L 92 05/22/20 11:06 145/85 H 91 05/22/20 07:05 121/82 90 05/22/20 02:56 147/62 H 91 Pulse Ox 05/22/20 11:47 85 L 05/22/20 11:06 05/22/20 07:05 05/22/20 02:56 Laboratory Results Short CBC 05/22/20 Range/Units 06:19 WBC 7.02 (4.8-10.8) K/uL Hgb 14.8 (12.0-16.0) g/dL Hct 47.4 H (37-47) % Plt Count 132 (130-400) K/uL BMP 05/22/20 06:19 Sodium 140 Potassium 4.0 Chloride 100 Carbon Dioxide 38 H BUN 14 Creatinine 0.89 Glucose 89 Calcium 8.4 L Cardiac Enzymes 05/21/20 Range/Units 14:45 Total Creatine Kinase 72 (26-192) U/L
--- NOTE | 2020-05-22 13:07 | Discharge Summary ---
Date of Service May 22, 2020 Admission HPI Per Admitting Provider CHIEF COMPLAINT: Shortness of breath and hypoxia. HISTORY OF PRESENT ILLNESS: This is a 74-year-old female with past medical history significant for hypertension, chronic lower extremity edema, who lives with her , comes because of shortness of breath. The patient states she thinks she might have this shortness of breath going for last 2 months, but last 2 weeks has been progressively worsened, any exertion making her short of breath. She went to PCP's office where she was found to have oxygen saturation in 70s in room air and she was sent here. When she came in, she was 73%, but with 2-3 liters she is going to mid 90s and she is talking in full sentences and seems comfortable and hemodynamically stable. Denies any chest pain. Denies any fever, chills, no cough, no nausea, no vomiting. No blurred visions. No earache, no runny nose, no sore throat, no difficulty swallowing. Appetite is okay. No recent weight gain or weight loss. No headache. No abdominal pain. Normal bowel and bladder movements. No black stools or blood in the stools. No hematuria or burning micturitions. She says she has this edema in her legs, she thinks it has been going on for last 1 or 2 years, sometimes less, sometimes more. As per her home medications, she takes Lasix as needed. She says no one in the family exposed to COVID. Admission Exam Per Admitting Provider PHYSICAL EXAMINATION: GENERAL: The patient is of moderate build, not in acute distress. VITAL SIGNS: Temperature 37.5, pulse 100, respiratory rate 20, blood pressure 133/81, oxygen 93% on 3 liters. HEENT: No pallor, no icterus. Pupils equal, round, reactive to light. NECK: No JVD, no neck masses, no carotid bruits. CARDIOVASCULAR: S1, S2 heard, regular rate and rhythm, no murmur, no gallop. RESPIRATORY SYSTEM: Normal AP diameter. No accessory muscle use. Mild bibasilar coarse crackles present. No wheezing. ABDOMEN: Soft, bowel sounds present, nontender. No distention. CENTRAL NERVOUS SYSTEM: Cranial nerves II-XII grossly intact. Nonfocal. EXTREMITIES: Chronic bilateral lower extremity edema present, no erythema seen. Principal Diagnosis Acute hypercapnic, hypoxic respiratory failure Possible interstitial lung disease Discharge Data Allergies Allergy/AdvReac Type Severity Reaction Status Date / Time No Known Allergies Allergy Verified 05/20/20 19:30 Consultations 05/20/20 21:08 ED Decision to Admit Stat 05/21/20 00:44 Consult Case Management - Discharge Planning Routine 05/21/20 08:00 Consult Pulmonology Routine Procedures Performed --CTA: No CT evidence of acute pulmonary embolism. Multinodular thyroid gland. Bilateral groundglass pulmonary opacities with a mosaic distribution. In addition there is dependent lower lung zone cystic change/honeycombing. There is also mild paramediastinal fibrotic changes with minimal bronchiectasis. Clinical correlation with any prior history of interstitial lung disease or mediastinal radiation recommended. The groundglass opacities could reflect an atypical pneumonia, be secondary to interstitial lung disease, or represent air trapping.. Clinical and radiographic follow-up recommended. --ECHO: Left ventricle EF: > 70%, grade 1 diastolic dysfunction. No significant valvular heart disease. Ordered Studies 05/20/20 19:20 CT angio chest PE protocol Stat Hospital Course (1) Hypoxia: Patient is a 74-year-old male with history of morbid obesity, hypertension, chronic lower extremity edema and other medical problems presents with history of shortness of breath and hypoxia. Acute hypercapnic, hypoxic respiratory failure Could have underlying chronic lung disease DD: Interstitial lung disease, ANDREW/obesity hypoventilation syndrome --CTA: No CT evidence of acute pulmonary embolism. Multinodular thyroid gland. Bilateral groundglass pulmonary opacities with a mosaic distribution. In addition there is dependent lower lung zone cystic change/honeycombing. There is also mild paramediastinal fibrotic changes with minimal bronchiectasis. Clinical correlation with any prior history of interstitial lung disease or mediastinal radiation recommended. The groundglass opacities could reflect an atypical pneumonia, be secondary to interstitial lung disease, or represent air trapping.. Clinical and radiographic follow-up recommended. --ECHO: Left ventricle EF: > 70%, grade 1 diastolic dysfunction. No significant valvular heart disease. --Negative COVID PCR --Immunological work pending --Continue BiPAP HS and PRN Continue supplemental oxygen Empirically on antibiotics--RocephinMathew Appreciate Pulmonology Input 2 step: Qualifies for home oxygen: Requires 2 liters at rest and 3 liters with activity Will need sleep study and PFTs as outpatient Needs follow up with Pulmonology upon discharge Hypertension: Continue losartan Abnormal UA Urine culture:pending Blood Cx: No growth to date Received Rocephin Denies dysuria Chronic Lower extremity edema: ECHO as above Continue Lasix Monitor Morbid Obesity: BMI: 45 DVT Px: Lovenox SQ Code Status Full Code DISPOSITION: Expect to discharge home today Total Time Total Time Spent Total Time Spent (In Minutes): 39 minutes Total Time Includes: Examination of the Patient, Discharge Planning, Medication Reconciliation, Communication With Other Providers and Other Discharge Plan Discharge Items Patient Disposition: Home - Self-Care Reason For Visit: SOB Discharge Diagnosis: Acute hypercapnic, hypoxic respiratory failure Possible interstitial lung disease Activity: Per Instructions section Exercise/Sports: Gradually increase as tolerated Non-emergency contact: Primary Care Provider and It Program Engagement Director Call non-emergency contact if: you have any medication questions, your symptoms worsen, your pain is not controlled, your pain is worsening, your pain is unusual for you, your pain is concerning for you and you have a fever Follow-up/Referrals: Naida Cardenas PA-C [Primary Care Provider] - 05/27/20 2:00 pm (05/27/2020 2:00 PM Provider Darius Nelson III, MD Department [facility] ) Diet: Heart Healthy Addtl Attending Provider Instructions: Follow-up with your primary care physician Naida Cardenas PA-C on May 27 at 2:00PM as scheduled Follow up with your It Program Engagement Director: pulmonary office visit scheduled with Dr Casillas on 06/07/2020 at 9 AM Complete antibiotic course--cefuroxime, doxycycline for 3 more days Use oxygen via nasal cannula--2 Liters at rest and 3 Liters with activity. Your blood tests--immunological work-up, blood culture, urine culture are pending at the time of discharge. Follow-up with your physician for results. Get pulmonary function tests, polysomnography as outpatient as advised Seek immediate medical attention if your symptoms reoccur or worsen Pending Studies at Discharge: Yes Studies:: Blood culture, urine culture, Immunological work-up Stand-Alone Forms: My [employer], Smoking Cessation Medications and DC Order Prescriptions: New (DME) Oxygen Home Liters Per Minute See Rx Instructions .ROUTE .MEDSUPPLY Qty: 1 RF: 0 doxycycline hyclate 100 mg capsule 100 mg PO BID Qty: 7 RF: 0 cefuroxime axetil 500 mg tablet 500 mg PO BID Qty: 7 RF: 0 Continued losartan 25 mg Tablet 25 mg PO QAM RF: 0 ibuprofen 200 mg Tablet 600 mg PO DAILY PRN (Reason: Pain) RF: 0 furosemide 20 mg Tablet 20 mg PO QAM RF: 0 cholecalciferol (vitamin D3) [Vitamin D3] 2,000 unit Tablet 2,000 unit PO QAM RF: 0 omega 7-mtc-edf-fish oil [Fish Oil] 1,000 mg (120 mg-180 mg) Capsule 1 cap PO QAM RF: 0 Glucosamine Chondroitin 550-30-1 mg Capsule 2 cap PO BID RF: 0 Discharge Orders: Discharge Order (Routine); Ordered 05/22/20 Ordered By: Manuel Umana Admission Data Admit Date/Time: 05/20/20 21:34 Attending Provider: Manuel Umana Admit Provider: Mickey Tamayo Primary Care Provider: Naida Cardenas Other Providers: Mickey Tamayo ; Adama Casillas Other Interventions: Discharge Summary Assessment (RN) Last Done: 05/22/20 14:24
[2020-05-22 15:08] VITALS: BP 144/78; TEMP 97.7; O2SAT 90
[2020-05-22 15:32] VITALS: PULSE 84
--- NOTE | 2020-05-22 23:23 | Electrocardiogram Report ---
Test Reason : Blood Pressure : / mmHG Vent. Rate : 098 BPM Atrial Rate : 098 BPM P-R Int : 138 ms QRS Dur : 064 ms QT Int : 352 ms P-R-T Axes : 065 002 037 degrees QTc Int : 449 ms Normal sinus rhythm Low voltage QRS Borderline ECG When compared with ECG of 14-APR-1994 15:15, No significant change was found Confirmed by Khoa Merida ([id number]) on 05/22/2020 11:22:34 PM Referred By: Naida Cardenas Confirmed By:Khoa Merida
[2020-05-29 01:33] LABS: Anti-Centromere Ab <1.0 NEG AI (<1.0 NEG); Anti-Neutrophil Antibody NONE DETECTED (NONE DETECTED); Anti-SS-A <1.0 NEG AI (<1.0 NEG); Anti-SS-B <1.0 NEG AI (<1.0 NEG); Anti-dsDNA Recombinant <1 IU/mL; JO 1 Antibody <1.0 NEG AI (<1.0 NEG); Proteinase-3 Ab <1.0 AI; RNP Antibody <1.0 NEG AI (<1.0 NEG); Rheumatoid Factor <14 IU/mL (<14); Scleroderma Anti Scl-70 Ab <1.0 NEG AI (<1.0 NEG)
== END 2020-05-22 17:00 | disposition home or self-care (01) | DRG 196 ==
LOC: ED 18:06 → 2N 21:34